=== PATIENT | male | born 1960 ===

== ENCOUNTER 2021-03-02 12:56 | Emergency (ER) | payer SELFPAY ==
[2021-03-02] MEDS ORDERED: ASPIRIN 81 MG TAB CHEW PO ONE (16:03)
--- NOTE | 2021-03-02 16:07 | Event Note ---
ED Screening Note Date of service: 03/02/21 Time: 16:05 ED Screening Note: 60-year-old male patient with history of hypertension presents to the emergency department with complaints of shortness of breath starting today. Patient states he felt "like he was crying for no reason" when the episode occurred. No history of similar symptoms. Patient is and today is his wedding anniversary. He has never experienced anxiety or panic attacks before. General: Awake, appropriately interactive, no acute distress. Neck: Supple. Full range of motion intact. Cardiovascular: Normal peripheral perfusion. Pulmonary: No respiratory distress. Patient is speaking normally without use of accessory muscles. Skin: No apparent rashes or lesions. Neurological: No facial asymmetry. Speech is clear. Follows commands. Patient is alert and oriented. Musculoskeletal: Moves all four extremities spontaneously with normal range of motion. Psych: Cooperative. Appropriate mood and affect. EKG and cardiac work-up initiated. I have greeted and performed a focused rapid initial assessment of this patient. A comprehensive ED assessment and evaluation of the patient, analysis of all test results, and completion of the medical decision-making process will be conducted by additional ED providers. This initial assessment/diagnostic orders/clinical plan/treatment(s) is/are subject to change based on patients health status, clinical progression and re-assessment. Further treatment and workup at subsequent clinical provider's discretion. Patient/guardian urged not to elope from the ED as their condition may be serious if not clinically assessed and managed.
[2021-03-02 16:14] VITALS: BP 136/80
--- NOTE | 2021-03-02 16:28 | XRay Report ---
CHEST 2 VIEWS INDICATION / CLINICAL INFORMATION: SOB. COMPARISON: None available. FINDINGS: SUPPORT DEVICES: None. HEART / MEDIASTINUM: The heart size and pulmonary vasculature are normal. There is mild aortic tortuo sity without aneurysm. LUNGS / PLEURA: No significant pulmonary or pleural abnormality. No pneumothorax. ADDITIONAL FINDINGS: No significant additional findings. IMPRESSION: No acute findings. Signer Name: Ehsan Amato MD Signed: 03/02/2021 4:23 PM Workstation Name: [id number]
[2021-03-02 17:36] LABS: Basophils % (Auto) 0.3 % (0.0-1.8); Eosinophils # (Auto) 0.1 K/mm3 (0.0-0.4); Eosinophils % (Auto) 1.8 % (0.0-4.3); Hematocrit 40.9 % (35.5-45.6); Hemoglobin 14.2 gm/dl (11.8-15.2); Lymphocytes # (Auto) 2.2 K/mm3 (1.2-5.4); Lymphocytes % (Auto) 28.5 % (13.4-35.0); Mean Corpuscular HGB Conc 35 % (32-34); Mean Corpuscular Volume 85 fl (84-94); Monocytes # (Auto) 0.5 K/mm3 (0.0-0.8); Platelet Count 293 K/mm3 (140-440); Red Blood Count 4.79 M/mm3 (3.65-5.03)
[2021-03-02 17:58] LABS: Alanine Aminotransferase 11 units/L (7-56); Albumin 4.4 g/dL (3.9-5); BUN/Creatinine Ratio 11; Blood Urea Nitrogen 13 mg/dL (9-20); Hemolysis Index 14
--- NOTE | 2021-03-06 09:07 | Electrocardiograph Report ---
[facility] Test Date: 2021-03-02 Test Time: 17:06:54 Pat Name: OBIE IVY Department: Room: Gender: M Naturalization Examiner: ALEC : 1960 Requested By: JOSÉ ANTONIO ROBISON Order Number: [id number] Reading MD: Ehsan Muniz Measurements Intervals Dike Rate: 49 P: 21 OR: 154 QRS: 3 QRSD: 90 T: 43 QT: 461 QTc: 418 Interpretive Statements Sinus bradycardia Nonspecific T abnormalities, anterior leads No previous ECG available for comparison Electronically Signed On 03-06-2021 9:07:44 EDT by Ehsan Muniz
== END 2021-03-02 13:05 | disposition left against medical advice (07) ==
LOC: ED 12:56
DX: F41.9 Anxiety disorder, unspecified (principal); Z53.21 Procedure and treatment not carried out due to patient leaving prior to being seen by health care provider
CPT/HCPCS: 36415; 71046; 80053; 83735; 85025; 93005